=== PATIENT | female | born 1975 | race Two or more races ===

== ENCOUNTER → 2023-11-28 | Day surgery (SDC) | payer OTHER ==
[~2023-11-28] MED LIST: ADVIL100 M1 PO; AMOX-CLAV 875-1 EACH PO; CEFAZOLIN SODIUM 1,000 MG VIAL ONE; CIPRO500 MG PO; COLACE100 MG PO; FLUCONAZOLE200 MG PO; INTESTINEX680 M1 PO; KETO10TA2 PO; NAPROXEN500 MG PO; PEPCID AC20 MG; PEPCID AC20 MG PO; POVIDONE-IODINE 118 ML BOTT TOP ONE; TRAM1TAB98 PO; ZANTAC150 MG PO; nexium; xanax
== END | disposition home or self-care (01) ==
LOC: ADM 11-26 10:45 → CIR.AMB 06:38
PROVIDERS: ATTEND Obstetrics & Gynecology
DX: N89.8 Other specified noninflammatory disorders of vagina (principal); T81.31XA Disruption of external operation (surgical) wound, not elsewhere classified, initial encounter; N73.0 Acute parametritis and pelvic cellulitis; Z88.5 Allergy status to narcotic agent; J45.909 Unspecified asthma, uncomplicated; H93.19 Tinnitus, unspecified ear

== ENCOUNTER 2024-01-16 11:21 | Outpatient (CLI) | payer OTHER ==
[~2024-01-16 11:21] MED LIST changes: -CEFAZOLIN SODIUM 1,000 MG VIAL ONE; -POVIDONE-IODINE 118 ML BOTT TOP ONE
== END 2024-01-16 11:51 | disposition home or self-care (01) ==
LOC: TOM 11:21
PROVIDERS: ATTEND Urology
DX: R33.9 Retention of urine, unspecified (principal); R31.0 Gross hematuria; T81.83XA Persistent postprocedural fistula, initial encounter